=== PATIENT | male | born 1955 | race Caucasian/White ===

== ENCOUNTER 2018-09-03 12:00 | Emergency (ER) | payer MEDICARE, BC ==
--- NOTE | 2018-09-03 12:21 | EDM.PDOC ---
ED HPI GENERAL MEDICAL PROBLEM - General Chief Complaint: Back Pain or Injury Stated Complaint: BACK PAIN [id number] Time Seen by Provider: 09/03/18 12:15 Source of Information: Reports: Patient History Limitations: Reports: No Limitations - History of Present Illness INITIAL COMMENTS - FREE TEXT/NARRATIVE: This 62 yo male patient reports to the ED with right sided lower back pain with pain shooting into his left leg. The patient reports he has chronic lower back pain that he sees his MD for in [place]. The patient reports he drove here from [place] last Saturday and has been experiencing increased pain in his lower back since that time. The patient reports he has been taking Saluda and Flexeril , but has had very little improvement in his symptoms. The patient reports he has noticed some blood in his stool for the past month, but is not sure if that has anything to do with his current lower back pain. The patient reports he has been given steroids in the past, which have helped, but the patient did not remember to bring them with him on this trip. Onset Date: 08/29/18 Duration: Constant Location: Reports: Back (right lower back) Quality: Reports: Ache, Sharp, Stabbing Severity: Severe Improves with: Reports: None Worsens with: Reports: None Associated Symptoms: Reports: No Other Symptoms Lower Back Pain Score (Numeric/FACES): 10 - Related Data Allergies Allergy/AdvReac Type Severity Reaction Status Date / Time NSAIDS (Non-Steroidal Allergy Itching Verified 09/03/18 12:10 Anti-Inflamma Home Meds: Home Meds Acetaminophen/HYDROcodone [Saluda 325-10 MG] 1 tab PO Q4H PRN 09/03/18 [History] Cyclobenzaprine [Flexeril] 10 mg PO TID PRN 09/03/18 [History] Past Medical History Cardiovascular History: Reports: High Cholesterol Respiratory History: Reports: Other (See Below) Other Respiratory History: half left lung removed Musculoskeletal History: Reports: Back Pain, Chronic Oncologic (Cancer) History: Reports: Lung - Infectious Disease History Infectious Disease History: Reports: None Social & Family History - Tobacco Use Smoking Status *Q: Former Smoker Used Tobacco, but Quit: Yes Month/Year Tobacco Last Used: 2011 - Recreational Drug Use Recreational Drug Use: No ED ROS GENERAL - Review of Systems Review Of Systems: ROS reveals no pertinent complaints other than HPI. ED EXAM,LOWER BACK PAIN/INJURY - Physical Exam Exam: See Below Exam Limited By: No Limitations General Appearance: Alert, WD/WN, Moderate Distress Eye Exam: Bilateral Eye: EOMI, Normal Inspection, PERRL Ears: Normal External Exam, Normal Canal, Hearing Grossly Normal, Normal TMs Nose: Normal Inspection, Normal Mucosa, No Blood Throat/Mouth: Normal Inspection, Normal Lips, Normal Teeth, Normal Gums, Normal Oropharynx, Normal Voice, No Airway Compromise Head: Atraumatic, Normocephalic Neck: Normal Inspection, Supple, Non-Tender, Full Range of Motion Respiratory/Chest: No Respiratory Distress, Lungs Clear, Normal Breath Sounds, No Accessory Muscle Use, Chest Non-Tender Cardiovascular: Normal Peripheral Pulses, Regular Rate, Rhythm, No Edema, No Gallop, No JVD, No Murmur, No Rub GI/Abdominal: Normal Bowel Sounds, Soft, Non-Tender, No Organomegaly, No Distention, No Abnormal Bruit, No Mass (Male) Exam: Deferred Rectal (Males) Exam: Prostate Normal, Deferred, Bloody Stool, Hemorrhoids ( internal and external) Back Exam: Paraspinal Tenderness (right lower back) Extremities: Normal Inspection, Normal Range of Motion, Non-Tender, No Pedal Edema, Normal Capillary Refill Neurological: Alert, Normal Mood/Affect, Normal Dorsiflexion, CN II-XII Intact, Normal Plantar Flexion, Normal Gait, Normal Reflexes, No Motor/Sensory Deficits , Oriented x 3 Psychiatric: Normal Affect, Normal Mood Skin Exam: Warm, Dry, Intact, Normal Color, No Rash Lymphatic: No Adenopathy Course - Vital Signs Last Recorded V/S: Last Vital Signs Temp 37.0 C 09/03/18 12:06 Pulse 107 H 09/03/18 12:06 Resp 18 09/03/18 12:06 BP 166/114 H 09/03/18 12:06 Pulse Ox 97 09/03/18 12:06 - Orders/Labs/Meds Labs: Laboratory Tests 09/03/18 09/03/18 Range/Units 12:36 12:36 WBC 6.8 (5.0-10.0) 10^3/uL RBC 5.34 (4.6-6.2) 10^6/uL Hgb 16.2 (14.0-18.0) g/dL Hct 46.4 (40.0-54.0) % MCV 86.9 (80-100) fL MCH 30.3 (27.0-34.0) pg MCHC 34.9 (33.0-35.0) g/dL Plt Count 206 (150-450) 10^3/uL Neut % (Auto) 67.6 (42.2-75.2) % Lymph % (Auto) 24.5 (20.5-50.1) % Mcdowell % (Auto) 6.0 (2-8) % Eos % (Auto) 1.5 (1.0-3.0) % Baso % (Auto) 0.4 (0.0-1.0) % Sodium 137 (135-145) mmol/L Potassium 3.9 (3.6-5.0) mmol/L Chloride 100 L (101-111) mmol/L Carbon Dioxide 22.0 (21.0-31.0) mmol/L Anion Gap 18.9 BUN 12 (7-18) mg/dL Creatinine 1.1 (0.6-1.3) mg/dL Est Cr Clr Drug Dosing 65.93 mL/min Estimated GFR (MDRD) > 60 BUN/Creatinine Ratio 10.90 Glucose 106 H (74-105) mg/dL Calcium 9.5 (8.4-10.2) mg/dl Total Bilirubin 1.2 H (0.2-1.0) mg/dL AST 20 (10-42) IU/L ALT 16 (10-60) IU/L Alkaline Phosphatase 51 (42-121) IU/L Total Protein 8.0 (6.7-8.2) g/dl Albumin 5.0 (3.2-5.5) g/dl Globulin 3.0 Albumin/Globulin Ratio 1.67 Departure - Departure Time of Disposition: 13:18 Disposition: Home, Self-Care 01 Condition: Fair Clinical Impression: Low back pain Qualifiers: Chronicity: acute Back pain laterality: right Sciatica presence: with sciatica Sciatica laterality: sciatica laterality unspecified Qualified Code(s): M54.40 - Lumbago with sciatica, unspecified side Hemorrhoids Qualifiers: Hemorrhoid type: unspecified Qualified Code(s): K64.9 - Unspecified hemorrhoids - Discharge Information *PRESCRIPTION DRUG MONITORING PROGRAM REVIEWED*: Not Applicable *COPY OF PRESCRIPTION DRUG MONITORING REPORT IN PATIENT ALTAGRACIA: Not Applicable Instructions: Chronic Back Pain, [id number], Hemorrhoids, [id number] Forms: ED Department Discharge Care Plan Goals: The patient was advised of the examination and lab results during the visit. The patient was given a script for Prednisone (20 mg) #10 to take 2 by mouth daily for 5 days. The patient was encouraged to use Preparation H 2-3 times per day to reduce hemorrhoid swelling. The patient may continue with his current medications as prescribed. If the patient has any additional symptoms or concerns, the patient should either return to the emergency department or visit his primary care facility.
[2018-09-03 13:05] LABS: ANION GAP 18.9; CHLORIDE,CL 100 mmol/L (101-111); SODIUM,NA 137 mmol/L (135-145)
== END 2018-09-03 13:25 | disposition home or self-care (01) ==
LOC: DL.ED 12:00
DX: M54.42 Lumbago with sciatica, left side (principal); K64.9 Unspecified hemorrhoids; Z88.8 Allergy status to other drugs, medicaments and biological substances; Z87.891 Personal history of nicotine dependence
CPT/HCPCS: 36415; 80053; 82272; 85025; 99283